=== PATIENT | female | born 1970 | race Caucasian/White ===

== ENCOUNTER 2017-01-21 12:33 | Day surgery (SDC) | payer OTHER ==
[2017-01-08 16:42] VITALS: BMI 27.4
[2017-01-21] MEDS ORDERED: ONDANSETRON 4 MG/2 ML VIAL IVPUSH PRN (14:30)
[2017-01-21] MEDS ORDERED: LACTATED RINGERS SOLUTION 1,000 ML IV SCH (14:30)
[2017-01-21] MEDS ORDERED: oxyCODONE HCL 5 MG TABLET PO PRN (14:30)
[2017-01-21] MEDS ORDERED: PROPOFOL 20 ML ONE ×2 (15:32)
[2017-01-21] MEDS ORDERED: MIDAZOLAM HCL 2 MG/2 ML SINGLE DOSE VIAL ONE (15:32)
[2017-01-21 16:59] VITALS: TEMP 97.5
[2017-01-21] MEDS ORDERED: oxyCODONE HCL 5 MG TABLET ONE (17:06)
[2017-01-21 17:32] VITALS: BP 134/75; PULSE 56
--- NOTE | 2017-01-22 10:57 | OP ---
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 OPERATIVE PROCEDURE: Right long finger distal interphalangeal joint arthrodesis. SURGEON: Saqib Izaguirre MD ANESTHESIA: Local with sedation. COMPLICATIONS: None. ESTIMATED BLOOD LOSS: Minimal. INDICATIONS: The patient is a 46-year-old female with the above findings, indicated for operative treatment. The risks, benefits, and alternatives were discussed with the patient at length, and proper informed consent was obtained. PROCEDURE: After proper identification of the patient and the correct operative site, the patient was brought to the operating room and placed supine on the operating table. All bony prominences were well padded. Sedation was given by the anesthesiologist. Intravenous antibiotics were given. Local anesthesia was given with 2% lidocaine. Right upper extremity was prepped and draped in the usual sterile fashion. Finger tourniquet was used. Dorsal incision was made over the DIP joint. Collateral ligaments were released. DIP joint was found to be severely arthritic and angulated. The articular surface and subchondral portions of the bone were removed on both the distal phalanx and the middle phalanx down to healthy cancellous bleeding bone. The joint was then aligned, it was a straight position, and a guidewire from the [employer] Cannulated Compression Screw Set was used. A 2.4-mm cannulated screw was then placed over the guidewire compressing the joint in a satisfactory position. Locally obtained bone was packed into the fusion site, and the skin repaired using a 5-0 nylon suture. Sterile dressings were applied. X-rays were taken confirming proper alignment and placement of screw. Splint was placed, sterile dressings were applied, and patient was reversed from anesthesia and brought to the recovery room in stable condition. She tolerated the procedure well. Star [id number]
== END 2017-01-21 15:25 | disposition home or self-care (01) ==
LOC: FASU 12:33
PROVIDERS: ATTEND Orthopaedic Surgery Hand Surgery
PROC: 0RGW07Z Fusion of Right Finger Phalangeal Joint with Autologous Tissue Substitute, Open Approach (ICD-10-PCS; principal; 2017-01-21 15:41)
DX: M19.041 Primary osteoarthritis, right hand (principal)
CPT/HCPCS: 73130-TC-RT; 84703

== ENCOUNTER 2021-06-19 09:05 | Day surgery (SDC) | payer OTHER ==
[2021-06-13 15:18] VITALS: BMI 26.2
[2021-06-19] MEDS ORDERED: ONDANSETRON 4 MG/2 ML VIAL IVPUSH PRN (09:54)
[2021-06-19] MEDS ORDERED: oxyCODONE HCL 5 MG TABLET PO PRN (09:54)
[2021-06-19] MEDS ORDERED: LACTATED RINGERS SOLUTION 1,000 ML IV SCH (10:00)
[2021-06-19] MEDS ORDERED: MIDAZOLAM HCL 2 MG/2 ML SINGLE DOSE VIAL ONE (10:10)
[2021-06-19] MEDS ORDERED: LIDOCAINE HCL 1%, 10 MG/ML (20ML VIAL) ONE (10:21)
[2021-06-19] MEDS ORDERED: BUPIVACAINE HCL/PF 0.25% (2.5MG/ML) 10 ML VIAL ONE ×2 (10:21→10:42)
[2021-06-19] MEDS ORDERED: ceFAZolin SODIUM 1 GM VIAL ONE (10:32)
[2021-06-19] MEDS ORDERED: LIDOCAINE HCL 2% 100 MG/5 ML DISP.SYRIN ONE (10:42)
[2021-06-19] MEDS ORDERED: DEXAMETHASONE SOD PHOSPHATE 4 MG/1 ML VIAL ONE (10:49)
[2021-06-19] MEDS ORDERED: ONDANSETRON 4 MG/2 ML VIAL ONE (10:49)
[2021-06-19] MEDS ORDERED: PROPOFOL 20 ML ONE ×3 (10:59→11:29)
[2021-06-19 13:03] VITALS: TEMP 97.3
[2021-06-19 13:31] VITALS: BP 118/67; PULSE 61
== END 2021-06-19 13:45 | disposition home or self-care (01) ==
LOC: FASU 09:05
PROVIDERS: ATTEND Orthopaedic Surgery Hand Surgery
PROC: 0RGX07Z Fusion of Left Finger Phalangeal Joint with Autologous Tissue Substitute, Open Approach (ICD-10-PCS; 2021-06-19)
PROC: 0RGX07Z Fusion of Left Finger Phalangeal Joint with Autologous Tissue Substitute, Open Approach (ICD-10-PCS; principal; 2021-06-19 10:40)
DX: M19.042 Primary osteoarthritis, left hand (principal)
CPT/HCPCS: 73130-TC-LT-FY; 84703; 94760

== ENCOUNTER 2022-07-02 12:14 | Day surgery (SDC) | payer OTHER ==
[2022-06-27 16:02] VITALS: BMI 28.3
[2022-07-02] MEDS ORDERED: ONDANSETRON 4 MG/2 ML VIAL IVPUSH PRN (13:12)
[2022-07-02] MEDS ORDERED: oxyCODONE HCL 5 MG TABLET PO PRN (13:12)
[2022-07-02] MEDS ORDERED: LACTATED RINGERS SOLUTION 1,000 ML IV SCH (13:15)
[2022-07-02] MEDS ORDERED: MIDAZOLAM HCL 2 MG/2 ML SINGLE DOSE VIAL ONE ×2 (13:26→16:03)
[2022-07-02] MEDS ORDERED: PROPOFOL 40 ML ONE ×3 (13:26→16:16)
[2022-07-02] MEDS ORDERED: BUPIVACAINE HCL/PF 0.25% (2.5MG/ML) 10 ML VIAL ONE (16:00)
[2022-07-02] MEDS ORDERED: ONDANSETRON 4 MG/2 ML VIAL ONE (16:21)
[2022-07-02] MEDS ORDERED: ceFAZolin SODIUM 1 GM VIAL ONE (16:21)
[2022-07-02] MEDS ORDERED: KETOROLAC TROMETHAMINE 30 MG/1 ML VIAL ONE (16:21)
[2022-07-02] MEDS ORDERED: DEXAMETHASONE SOD PHOSPHATE 4 MG/1 ML VIAL ONE (16:21)
[2022-07-02] MEDS ORDERED: LIDOCAINE HCL 2% (20ML MULTI-DOSE VIAL) ONE (16:31)
[2022-07-02] MEDS ORDERED: LIDOCAINE HCL 1%, 10 MG/ML (20ML VIAL) ONE (16:31)
[2022-07-02] MEDS ORDERED: ACETAMINOPHEN 1000 MG/100 ML BAG IVPB PRN (17:53)
[2022-07-02] MEDS ORDERED: oxyCODONE HCL 5 MG TABLET ONE (18:28)
[2022-07-02 19:03] VITALS: TEMP 97.7
[2022-07-02 19:05] VITALS: PULSE 66
[2022-07-02 19:06] VITALS: BP 133/72; RESP 18
== END 2022-07-02 19:06 | disposition home or self-care (01) ==
LOC: FASU 12:14
PROVIDERS: ATTEND Orthopaedic Surgery Hand Surgery
PROC: 0RGW07Z Fusion of Right Finger Phalangeal Joint with Autologous Tissue Substitute, Open Approach (ICD-10-PCS; 2022-07-02)
PROC: 0RGW07Z Fusion of Right Finger Phalangeal Joint with Autologous Tissue Substitute, Open Approach (ICD-10-PCS; principal; 2022-07-02 16:29)
DX: M19.041 Primary osteoarthritis, right hand (principal)
CPT/HCPCS: 73130-TC-RT-FY; 94760; C1713